=== PATIENT | male | born 1985 | race Caucasian/White ===

== ENCOUNTER 2023-10-06 12:25 | Emergency (ER) | payer OTHER, SELFPAY ==
[2023-10-06 12:37] VITALS: BP 152/96; PULSE 57; TEMP 36.9; O2SAT 100; BMI 28.4
--- NOTE | 2023-10-06 13:30 | CT_ITS ---
The [address] [address] Patient Name: RIVERA TATUM MRN: [id number] date: 1985 Sex: M Assigned Patient Location: ER Current Patient Location: Accession/Order Number: [id number] Exam Date: 10/06/2023 14:27 Report Date: 10/06/2023 15:07 At the request of: NABIL MEDINA Procedure: CT facial bones wo con EXAM: CT facial bones wo con COMPARISON: None available. CLINICAL INDICATION: mastoid/right face pain for 2 months, history of facial trauma TECHNIQUE: Multiplanar CT images of the facial bones without contrast. Dose reduction techniques were achieved by using automated exposure control and/or adjustment of mA and/or kV according to patient size and/or use of iterative reconstruction technique. FINDINGS: No evidence of acute osseous abnormality of the facial bones. No suspicious osseous lesions. Mastoid appears intact and not dislocated. Paranasal sinuses and mastoid air cells appear largely clear. Orbital structures unremarkable. No facial soft tissue swelling. No evidence of periodontal disease. No acute intracranial abnormality within the field of view. No evidence of acute osseous abnormality of the visualized cervical spine. CT/CT facial bones wo con IMPRESSION: No evidence of acute osseous abnormality of the facial bones. Electronically authenticated by: SUKHI RODRIGUEZ Date: 10/06/2023 15:07
[2023-10-06 13:56] LABS: Hematocrit 39.7 % (42.0-54.0); Mean Corpuscular HGB Conc 32.7 g/dL (29.9-35.2); Mean Corpuscular Hemoglobin 27.2 pg (25.9-34.0); Mean Corpuscular Volume 83.1 fL (80.0-94.0); Mean Platelet Volume 10.9 fL (9.5-13.5); Platelet Count 249 10^3/uL (150-450); Red Blood Count 4.78 10^6/uL (4.70-6.10); Red Cell Distribution Width 15.4 % (11.0-15.0); White Blood Count 12.6 10^3/uL (4.0-11.0)
[2023-10-06 14:04] LABS: Erythrocyte Sedimentation Rate 6 mm/hr (<=15)
[2023-10-06] MEDS: KETOROLAC TROMETHAMINE 30 MG/ML VIAL 15 MG IVP (14:16)
[2023-10-06 14:25] LABS: Alanine Aminotransferase 26 U/L (16-63); Albumin Globulin Ratio 1.1; Albumin Level 3.6 g/dL (3.4-5.0); Alkaline Phosphatase 62 U/L (46-116); Anion Gap 10.5; Aspartate Amino Transferase 21 U/L (15-37); BUN Creatinine Ratio 11.2; Bilirubin Total 0.4 mg/dL (0.2-1.0); Calcium 8.6 mg/dL (8.5-10.1); Carbon Dioxide 29.6 mmol/L (21.0-32.0); Chloride 106 mmol/L (98-107); Estimated GFR (African America >60 (>=60); Estimated GFR (Non-African Ame >60 (>=60); Globulin 3.2 g/dL; Glucose 87 mg/dL (74-106); Potassium 4.1 mmol/L (3.5-5.1); Sodium 142 mmol/L (136-145); Total Protein 6.8 g/dL (6.4-8.2)
[2023-10-06 14:33] LABS: Lymphocytes Absolute Manual 6.67 10^3/uL (1.20-3.80); Segmented Neut Absolute Manual 5.41 10^3/uL (1.4-6.5)
--- NOTE | 2023-10-06 14:44 | ED_ITS ---
HPI HPI - General Adult General Chief complaint: Headache Stated complaint: HEAD PAIN Time Seen by Provider: 10/06/23 13:01 Source: patient Mode of arrival: walk-in History of Present Illness HPI narrative: The patient coming to the ER with right-sided face pain that has been going on at least for 2-month, that he initially had a infection that got treated with antibiotic throughout the 2-month he actually had a steroid course that he finished more than 10 days ago he also had 2 ER evaluation the last was this morning and [facility], the patient was upset because they did not do any testing the only gave him Toradol and discharged home with [facility] The patient have decreased sensation in the right side of the face he is denying any nausea vomiting he also is denying any ear pain at the moment , no runny no se no sore throat Related Data Home Medications ?Medication ?Instructions ?Recorded ?Confirmed No Known Home Medications 10/06/23 10/06/23 Allergies Allergy/AdvReac Type Severity Reaction Status Date / Time No Known Drug Allergies Allergy Verified 10/06/23 12:42 Opioid HPI Opioid Management Most Recent Opioid Data: Last Pain Scale 8 10/06/23 14:16 Last MAR Pain Assessment 10/06/23 14:16 Review of Systems ROS Status of ROS 10 or more systems reviewed and unremark able except as noted in history and below Exam Narrative Exam Narrative: Nurses notes and vital signs reviewed and patient is not hypoxic. General: Well-appearing and in no apparent distress. Skin: Warm, dry, no pallor noted. No rash. Head: Normocephalic, atraumatic. Decreased sensation in the right side of the face mostly over the forehead as well as around the right cheek area. Neck: Supple, non-tender. Eye: Pupils are equal, round and EOMI. No scleral icterus. Ears, Nose, Mouth, and Throat: TM are clear, no nasal mucosal hypertrophy. Oral mucosa is moist, no posterior oropharynx erythema, uvula is mid-line Cardiovascular: Regular Rate and Rhythm without murmur, gallop or rub. Respiratory: No accessory muscle use or respiratory distress. Lungs are clear to auscultation, no wheezing, rales or rhonchi Chest Wall: no tenderness Back: No midline thoracic or lumbar vertebral tenderness. No CVA tenderness Musculoskeletal: normal ROM, no calf or popliteal tenderness, no lower extremity edema/swelling GI: Abdomen is soft, non-distended. Normal bowel sounds. No masses appreciated. No tenderness to palpation. No rebound, guarding, or rigidity noted. Neurological: A&O x4. No cranial nerve dysfunction observed. No truncal ataxia. Moves all extremities. Sensation intact. Psychiatric: Cooperative and interactive. Normal mood and affect. Constitutional Vital Signs, click to edit/add: Last Vital Signs Temp 98.4 F 10/06/23 12:37 Pulse 88 10/06/23 15:27 Resp 20 10/06/23 15:27 BP 152/96 H 10/06/23 12:37 Pulse Ox 98 10/06/23 15:27 O2 Del Method Room Air 10/06/23 12:37 Course Vital Signs Vital signs: Vital Signs Temperature 98.4 F 10/06/23 12:37 Pulse Rate 57 L 10/06/23 12:37 Respiratory Rate 16 10/06/23 12:37 Blood Pressure 152/96 H 10/06/23 12:37 Pulse Oximetry 100 10/06/23 12:37 Oxygen Delivery Method Room Air 10/06/23 12:37 Temperature 98.4 F 10/06/23 12:37 Pulse Rate 88 10/06/23 15:27 Respiratory Rate 20 10/06/23 15:27 Blood Pressure 152/96 H 10/06/23 12:37 Pulse Oximetry 98 10/06/23 15:27 Oxygen Delivery Method Room Air 10/06/23 12:37 Medical Decision Making [facility] Narrative Medical decision making narrative: The patient CBC shows a white blood cells of 12 Chemistry was normal otherwise and the patient ESR not elevated CT of the facial sinuses shows no acute pathology Right now the patient will continue take Mobic his presentation could be secondary to trigeminal neuralgia because of the pain and decreased sensation he have no other symptoms on examination Patient to follow-up with his care doctor for further evaluation by neurology The patient is to follow up with primary care physician in next 2-3 days or to return to the emergency department should any of the signs or symptoms worsen or new symptoms develop. The patient agrees with the following Diagnosis and Treatment plan and the patient will be discharged home. Lab Data Labs: Lab Results 10/06/23 Range/Units 13:50 WBC 12.6 H (4.0-11.0) 10^3/uL RBC 4.78 (4.70-6.10) 10^6/uL Hgb 13.0 L (14.0-18.0) g/dL Hct 39.7 L (42.0-54.0) % MCV 83.1 (80.0-94.0) fL MCH 27.2 (25.9-34.0) pg MCHC 32.7 (29.9-35.2) g/dL RDW 15.4 H (11.0-15.0) % Plt Count 249 (150-450) 10^3/uL MPV 10.9 (9.5-13.5) fL Seg Neuts % (Manual) 43.0 Lymphocytes % (Manual) 53.0 (20.5-60.0) % Monocytes % (Manual) 4.0 (1.7-12.0) % Eosinophils % (Manual) 0.0 L (0.9-7.0) % Basophils % (Manual) 0.0 L (0.2-2.0) % Neutrophils # (Manual) 5.41 (1.4-6.5) 10^3/uL Lymphocytes # (Manual) 6.67 H (1.20-3.80) 10^3/uL Monocytes # (Manual) 0.50 (0.30-0.80) 10^3/uL Eosinophils # (Manual) 0.00 (0.00-0.70) 10^3/uL Basophils # (Manual) 0.00 (0.00-0.10) 10^3/uL ESR 6 (<=15) mm/hr Sodium 142 (136-145) mmol/L Potassium 4.1 (3.5-5.1) mmol/L Chloride 106 (98-107) mmol/L Carbon Dioxide 29.6 (21.0-32.0) mmol/L Anion Gap 10.5 BUN 11.0 (7.0-18.0) mg/dL Creatinine 0.98 (0.70-1.30) mg/dL Est GFR ( Amer) >60 (>=60) Est GFR (Non-Af Amer) >60 (>=60) BUN/Creatinine Ratio 11.2 Glucose 87 (74-106) mg/dL Calcium 8.6 (8.5-10.1) mg/dL Total Bilirubin 0.4 (0.2-1.0) mg/dL AST 21 (15-37) U/L ALT 26 (16-63) U/L Alkaline Phosphatase 62 (46-116) U/L Total Protein 6.8 (6.4-8.2) g/dL Albumin 3.6 (3.4-5.0) g/dL Globulin 3.2 g/dL Albumin/Globulin Ratio 1.1 Discharge Plan Discharge Stand Alone Forms: Portal Instructions Chief Complaint: Headache Clinical Impression: Right trigeminal neuralgia Patient Disposition: Home, Self-Care Time of Disposition Decision: 15:32 Prescriptions / Home Meds: No Action No Known Home Medications Print Language: [place] Instructions: Trigeminal Neuralgia (ED) Referrals: Physician,Non-Staff, [Primary Care Provider] - 1 week Discharge Date/Time: 10/06/23 15:38
[2023-10-06 15:27] VITALS: PULSE 88; O2SAT 98
== END 2023-10-06 15:38 | disposition home or self-care (01) ==
PROVIDERS: Emergency Provider Emergency Medicine
DX: G50.0 Trigeminal neuralgia (principal)
CPT/HCPCS: 36415; 70486; 80053; 85007; 85027; 85652; 96374; 99285